=== PATIENT | female | born 1945 | race Caucasian/White ===

== ENCOUNTER 2020-09-01 19:11 | Emergency (ER) | payer OTHER ==
[~2020-09-01] VITALS: Ht 160 cm; Wt 99.8 kg
[~2020-09-01 19:11] MED LIST: [UNRECOGNIZED DRUG - CODE] PO; [UNRECOGNIZED DRUG - OTHER] PO
[2020-09-01] MEDS ORDERED: CALCIUM CHLOR(10%) 100MG/ML 10ML SYRINGE IV ONE (19:12)
[2020-09-01] MEDS ORDERED: DEXTROSE (50%) 50ML SYRG IV ONE (19:12)
[2020-09-01] MEDS ORDERED: SODIUM BICARBONATE 8.4% INJ 50ML SYRINGE IV ONE (19:12)
[2020-09-01] MEDS ORDERED: EPINEPHrine HCL 1 MG/10 ML SYRG IV ONE (19:12)
[2020-09-01 19:22] VITALS: BP 0/0
== END 2020-09-01 19:22 ==
LOC: EDBD 19:11 → ER 19:11
DX: I46.9 Cardiac arrest, cause unspecified (principal); E78.5 Hyperlipidemia, unspecified; I10 Essential (primary) hypertension; F17.210 Nicotine dependence, cigarettes, uncomplicated; R06.89 Other abnormalities of breathing; Z90.710 Acquired absence of both cervix and uterus
CPT/HCPCS: 31500; 92950; 99285; J0171; J7042